=== PATIENT | male | born 2000 | race Caucasian/White ===

== ENCOUNTER 2024-11-11 01:23 | Emergency (ER) | payer BC, SELFPAY ==
[2024-11-11 01:31] VITALS: BP 122/80
[2024-11-11] MEDS: ZOFRAN 4 MG IV (02:11)
[2024-11-11] MEDS: D5/0.9% SODIUM CHLORIDE 250 IV (02:11)
[2024-11-11 02:17] LABS: % Basophils 0.3 % (0-2); % Immature Granulocytes 0.7 % (0-0.5); % Lymphocytes 1.8 % (20.5-51.1); % Monocytes 5.3 % (1.7-9.3); % Neutrophils 91.9 % (42.2-75.2); Absolute Basophils 0.1 10^3/uL (0-0.2); Absolute Immature Granulocytes 0.1 10^3/uL (0-0.05); Absolute Lymphocytes 0.4 10^3/uL (1.2-3.4); Absolute Monocytes 1.1 10^3/uL (0.1-0.6); Absolute Neutrophils 18.1 10^3/uL (1.4-6.5); Hemoglobin 15.6 g/dL (13.0-18.0); Mean Corp Hgb Conc. 33.9 g/dL (33.0-37.0); Mean Corpuscular Hgb 29.4 pg (27.0-31.0); Mean Corpuscular Volume 86.6 fL (80.0-94.0); Mean Platelet Volume 8.3 fL (7.4-10.4); Nucleated Red Blood Cells % 0 % (-); Platelet Count 428 10^3/uL (130-400); Red Blood Cell Count 5.31 10^6/uL (4.70-6.10); Red Cell Dist. Width 12.8 % (11.5-14.5); White Blood Cell Count 19.7 10^3/uL (4.8-10.8)
[2024-11-11 02:29] LABS: ALT (SGPT) 49 U/L (0-50); AST (SGOT) 46 U/L (17-59); Albumin 5.1 g/dl (3.5-5.0); Alkaline Phosphatase 65 U/L (38-126); Blood Urea Nitrogen 21 mg/dl (9-20); Calcium 9.4 mg/dl (8.4-10.2); Carbon Dioxide 28 mmol/L (22-30); Chloride 102 mmol/L (98-107); Glucose 125 mg/dl (70-99); Lipase 27 U/L (23-300); Potassium 4.7 mmol/L (3.5-5.1); Sodium 141 mmol/L (135-145); Total Bilirubin 0.6 mg/dl (0.2-1.3); Total Protein 7.9 g/dl (6.3-8.2); eGFR > 60.00
[2024-11-11 03:09] LABS: Glucose - Point of Care 246 mg/dl (70-99)
[2024-11-11] MEDS: NSS 500 IV ×2 (03:14→03:47)
--- NOTE | 2024-11-11 03:39 | ED.GENMED ---
History of Present Illness
General
Chief Complaint: Abdominal Pain
Source: patient
Exam Limitations: none
Time Seen by Provider: 11/11/24 03:26
History of Present Illness
History of Present Illness:
See MDM
Past History
Past History
ED Past Medical History: Asthma, Hypercholesterolemia, IDDM and Psychiatric (ADHD)
ED Past Surgical History: None
Social History
Tobacco: Non-smoker
Alcohol: None
Phy Exam
Physical Exam
Physical Exam:
See MDM
Course
Orders/Labs/Results
Orders:
Orders
11/11/24 02:00
IV Insert/Care/Rem.- Treatment PRN
Ondansetron Injectable [Zofran] 4 mg IV NOW STA
11/11/24 02:08
Complete Blood Count/With Diff Urgent
Comprehensive Metabolic Panel Urgent
Lipase Urgent
11/11/24 03:00
Dextrose 5%/0.9%Sodchl 1000 ml [D5/0.9% Sodium Chloride] 1,000 ml IV 500 mls/hr
Dextrose 5%/0.9%Sodchl 1000 ml [D5/0.9% Sodium Chloride] 1,000 ml IV 500 mls/hr
11/11/24 03:05
Bedside Glucose- Treatment ONCE
11/11/24 03:10
0.9% Sodium Chloride 500 ml [Nss] 500 ml IV BOLUS
11/11/24 03:39
0.9% Sodium Chloride 500 ml [Nss] 500 ml IV BOLUS
11/11/24 04:55
Ketorolac [Toradol] 30 mg IV NOW STA
Abnormal Lab Results
11/11/24 11/11/24
02:08 03:08
WBC 19.7 H 10^3/uL
(4.8-10.8)
Plt Count 428 H 10^3/uL
(130-400)
Abs Immat Gran (auto) 0.1 H 10^3/uL
(0-0.05)
Absolute Neuts (auto) 18.1 H 10^3/uL
(1.4-6.5)
Absolute Lymphs (auto) 0.4 L 10^3/uL
(1.2-3.4)
Absolute Monos (auto) 1.1 H 10^3/uL
(0.1-0.6)
Immature Gran % 0.7 H %
(0-0.5)
Neutrophils % 91.9 H %
(42.2-75.2)
Lymphocytes % 1.8 L %
(20.5-51.1)
BUN 21 H mg/dl
(9-20)
Glucose 125 H mg/dl
(70-99)
Albumin 5.1 H g/dl
(3.5-5.0)
POC Glucose 246 H mg/dl
(70-99)
11/11/24 02:08
11/11/24 02:08
Vital Signs
Initial and Last Documented VS:
Initial Vital Signs
Pulse Resp BP Pulse Ox
95 18 122/80 96
11/11/24 01:31 11/11/24 01:31 11/11/24 01:31 11/11/24 01:31
Last Documented Vital Signs
Pulse Resp BP Pulse Ox
95 18 122/80 96
11/11/24 01:31 11/11/24 01:31 11/11/24 01:31 11/11/24 01:31
MDM/Problems Addressed
Differential Diagnosis Includes:
HPI and MDM Narrative:
23-year-old male presenting with nausea and vomiting. Patient developed multiple episodes of vomiting soon after eating spicy tuna. There were similar sick contacts at home last week. Patient was more concerned about his insulin dropping. He
removed his insulin pump in triage. Patient was given dextrose solution and his blood sugar is improving. On my exam, his abdomen is soft and nontender. He is feeling better after Zofran. We discussed likely viral gastroenteritis but also
discussed alternative diagnoses. I discussed that this diagnosis is the diagnosis of exclusion and I did offer CT scan. It was shared decision making to not obtain the CT given that his abdominal tenderness appears to be more in line with
abdominal cramping from vomiting rather than intra-abdominal pathology. Father at bedside also agrees
Physical exam
General: Well appearing and non-toxic
HEENT: protecting airway. Mildly dry mucous membrane
Neck: appears supple
CV: No evidence of cyanosis
Resp: No accessory muscle use
Abd: Non-distended. Soft. No significant tenderness noted
Extremities: No deformities
Neuro: alert
Psych: Normal affect
Skin: Intact
Problems Addressed including Acute and Chronic Conditions affecting care:
1. Nausea, vomiting and abdominal pain
Acuity: acute
Prognosis: stable
Details: Likely viral gastroenteritis. Symptoms improving with fluids and Zofran.
Updates
After IV fluids and Zofran, patient able to tolerate p.o. and feels comfortable going home
Differential Diagnosis (but not limited to): Viral gastroenteritis, colitis, acute appendicitis
Testing considered: CT abdomen/pelvis
Drug therapy (if applicable): OTC meds, please see d/c instruction regarding Rx drugs
Amount and/or Complexity of Data Reviewed
Clinical info obtained from: Patient
External data reviewed: N/A
Labs I independently reviewed (but not limited to): Leukocytosis which is likely reactive from vomiting
Radiology: N/A
Pulse Ox: not hypoxic
EKG independently reviewed: N/A
Stave And Bolt Equalizer: N/A
Critical Care: N/A
Risk of Complication:
Social Determinants of health: Good social support
Discussed with other providers: N/A
Escalation of Care includes Admit/Obs: After being observed in the Emergency Department, pt stable for discharge.
Occasional wrong word or 'sound a like' substitutions may have occurred due to the inherent limitations of voice recognition software. Read the chart carefully and recognize, using context, where substitutions have occurred.
*Critical Care Note
Total Time (30-74mins, 75-104mins- exclusive of procedures): Not Applicable
ED Attending Note
-
Portions of this chart may have been created with voice recognition software.� Occasional wrong word or��sound alike� substitutions may have occurred due to the inherent limitations of voice recognition software.
Discharge Plan
Departure
Patient Disposition: Home (Routine Discharge)
Date of Disposition: 11/11/24
Time of Disposition: 04:56
Patient with high blood pressure during this ER visit?: No
Discharge Problem:
Viral gastroenteritis
Instructions: Nausea and Vomiting, Adult (DC)
Prescriptions:
New
ondansetron 4 mg Tablet,Disintegrating
4 mg PO BIDPRN PRN (Reason: nausea/vomiting) Qty: 10 0RF
No Action
cetirizine 10 MG tablet
10 mg PO DAILY
insulin lispro [Humalog U-100 Insulin] 100 UNIT/ML solution
1 unit SC .CONT
Patient Comments:
insulin pump, sliding scale.
methylphenidate HCl [Ritalin LA] 20 MG capsule,ER biphasic 50-50
20 mg PO DAILY
albuterol sulfate 1 PUFF HFA aerosol inhaler
2 puff inhalation R Q4HPRN PRN (Reason: shortness of breath) Qty: 1 0RF
amoxicillin-pot clavulanate 875-125 mg tablet
1 tab PO BID Qty: 14 0RF
Referrals:
NONE,* [Family Provider] -
Activity Restrictions/Additional Instructions:
Please return for any worsening symptoms.
You may return at any time if you have further concerns.
Please follow up with your doctor at the first available appointment, preferably this week.
Thank you for choosing [facility].
Interventions
Interventions:
ED- Fall Risk Assessment Last Done: 11/11/24 03:46
*ED COVID-19 Vaccine History Last Done: 11/11/24 01:24
ZG-Eybbsy-Scbkwwhaew Assessment Last Done: 11/11/24 03:42
Discharge Date and Time
Print Language: TURKISH
== END 2024-11-11 05:17 | disposition home or self-care (01) ==
LOC: EMR 01:23
PROVIDERS: EMERGENCY PHYSICIAN Student in an Organized Health Care Education/Training Program
DX: A08.4 Viral intestinal infection, unspecified (principal); J45.909 Unspecified asthma, uncomplicated; E11.9 Type 2 diabetes mellitus without complications; Z79.4 Long term (current) use of insulin
CPT/HCPCS: 99284; 96365; 96375; 96361; 80053; 82962; 83690; 85025